=== PATIENT | female | born 1990 | race Two or more races ===

== ENCOUNTER 2018-03-13 15:18 | Emergency (ER) | payer OTHER ==
[2018-03-13 15:24] VITALS: BP 99/72
--- NOTE | 2018-03-13 15:44 | EDPHY ---
H & P Stated Complaint: rectal bleeding for 5 days/?fissure/was taking acutaine Time Seen by Provider: 03/13/18 15:25 HPI/ROS: Chief Complaint: Rectal pain and bleeding HPI: 27-year-old woman is experiencing bleeding when she has a bowel movement for the last several days. She states that she was on Accutane for 3 weeks but then discontinued. She has also been straining to have a bowel movement. She is having bright red blood with her bowel movements over normal stool. Stool is quite hard. No lightheadedness or fainting. No abdominal pain. Is having some rectal discomfort while she has a bowel movement. She has been using preparation H for 2 days without any relief. She is very concerned because she is seeing which she believes is a large amount of blood in the toilet after she has a bowel movement. ROS: 10 point Review of Systems is negative except as noted in the HPI. PMH: Acne Social History: No smoking, no alcohol, no recreational drug use Family History: non-contributory Physical Exam: Gen: Awake, Alert, No Distress HEENT: Nose: no rhinorrhea Eyes: PERRLA, EOMI Mouth: Moist mucosa Abd: Soft, non-tender, no guarding Rectal: (Performed with Jennifer, nurse senior it auditor) she has a small non thrombosed 5 mm hemorrhoid in the 2 o'clock position. There are no fissures. Back: no CVA tenderness, no midline tenderness Ext: no edema, non-tender Skin: no rash Neuro: CN II-XII intact, Sensation grossly intact, Strength 5/5 in bilateral upper and lower extremities - Personal History LMP (Females 10-55): 22-28 Days Ago Current Tetanus Diphtheria and Acellular Pertussis (TDAP): Unsure - Medical/Surgical History Hx Asthma: No Hx Chronic Respiratory Disease: No Hx Diabetes: No Hx Cardiac Disease: No Hx Renal Disease: No Hx Cirrhosis: No Hx Alcoholism: No Hx HIV/AIDS: No Hx Splenectomy or Spleen Trauma: No Other PMH: denies - Social History Smoking Status: Never smoked Constitutional: Initial Vital Signs Temperature (C) 36.9 C 03/13/18 15:21 Heart Rate 100 03/13/18 15:21 Respiratory Rate 17 03/13/18 15:21 Blood Pressure 99/72 L 03/13/18 15:21 O2 Sat (%) 95 06/25/18 15:21 O2 Delivery Mode Room Air Allergies/Adverse Reactions: No Known Allergies Allergy (Verified 03/13/18 15:20) Home Medications: Medication Instructions Recorded Accutane 03/13/18 Medical Decision Making ED Course/Re-evaluation: 27-year-old woman presenting with rectal bleeding and rectal pain. She has a small non thrombosed external hemorrhoid. She is not having any presyncopal symptoms and is not appear anemic any way. Vital signs are normal. She is already taking preparation H. I have recommended daily Sitz bath as and increasing fiber in her diet. Will refer her to outpatient follow-up for any concerns. Departure - Departure Disposition: Home, Routine, Self-Care Clinical Impression: Hemorrhoids Condition: Good Instructions: Hemorrhoids (ED) Additional Instructions: Make sure to drink at least 8, 8 oz glasses of water a day. Increase the fiber in her diet. You may add FiberCon or a similar fiber supplement to your diet. Continue taking the preparation H topically per package instructions. Follow up with primary care physician in 3-4 days for further evaluation. Return to the emergency department for lightheadedness, fainting, worsening abdominal or rectal pain, or any other concerns. Referrals: NONE *PRIMARY CARE P,. [Primary Care Provider] - As per Instructions Nidia Felix MD [Medical Doctor] - As per Instructions
== END 2018-03-13 15:56 | disposition home or self-care (01) ==
DX: K64.9 Unspecified hemorrhoids (principal)